=== PATIENT | female | born 1965 | race Asian ===

== ENCOUNTER 2019-04-04 12:40 | Emergency (ER) | payer OTHER ==
[~2019-04-04] VITALS: Ht 154.9 cm; Wt 56.7 kg
[2019-04-04] MEDS ORDERED: Miralax17 GM PO (14:48)
[2019-04-04] MEDS ORDERED: Norco 7.5-3251 EACH PO (14:48)
[2019-04-04] MEDS ORDERED: ONDA4ODT MM (14:50)
[2019-04-05] MEDS ORDERED: THERA1 EACH PO (18:58)
[2019-04-05] MEDS ORDERED: ERGO400 PO (18:58)
[2019-04-05] MEDS ORDERED: ASCO500 PO (18:58)
[2019-04-05] MEDS ORDERED: TOCO1000 PO (18:59)
[2019-04-05] MEDS ORDERED: FISH OIL 1,001000 MG PO (18:59)
[2019-04-16] MEDS ORDERED: ACET500 PO (11:12)
== END 2019-04-04 15:43 | disposition home or self-care (01) ==
LOC: ER 12:40
DX: K59.00 Constipation, unspecified (principal); R11.2 Nausea with vomiting, unspecified
CPT/HCPCS: 36415; 74176; 96374; 96375; 99284-25; J1170; J2405; J7030

== ENCOUNTER → 2019-04-04 | Outpatient (CLI) | payer OTHER ==
[~2019-04-04] MED LIST: ACET500 PO; ASCO500 PO; CENTRUM FLAVOR1 EAC1 PO; CYAN500; EMLA CREAM TOP; EPIDIOLEX100 MG/1 M; ERGO400 PO; FISH OIL 1,001000 MG PO; LORA.5; METO5A PO; Miralax17 GM PO; Norco 7.5-3251 EACH PO; OMEG1CAP30; ONDA4ODT MM; ONDA8 PO; PRED20 PO; PROBIOTIC1 EAC1 PO; THERA1 EACH PO; TOCO1000 PO; VITAMIN D5000 UNIT
[2019-04-04 10:35] LABS: BASOPHILS ABSOLUTE AUTO 0.05 K/mm3 (0.00-0.23); BASOPHILS PERCENT AUTO 1 % (0-2); EOSINOPHILS ABSOLUTE AUTO 0.21 K/mm3 (0.00-0.68); EOSINOPHILS PERCENT AUTO 2 % (0-6); Hematocrit 42.9 % (33.0-51.0); Hemoglobin 13.5 g/dL (11.5-16.0); IMMATURE GRAN ABSOLUTE AUTO 0.03 K/mm3 (0.00-0.10); IMMATURE GRAN PERCENT AUTO 0 % (0-1); LYMPHOCYTES ABSOLUTE AUTO 1.91 K/mm3 (0.84-5.20); LYMPHOCYTES PERCENT AUTO 19 % (21-46); MONOCYTES ABSOLUTE AUTO 0.45 K/mm3 (0.16-1.47); MONOCYTES PERCENT AUTO 4 % (4-13); Mean Corpuscular HGB 25.6 pg (26.0-34.0); Mean Corpuscular HGB Conc 31.5 g/dL (31.5-36.5); Mean Corpuscular Volume 81 fL (80-100); Mean Platelet Volume 8.4 fL (9.1-12.4); NEUTROPHILS PERCENT AUTO 74 % (41-73); Platelet Count 353 K/mm3 (150-400); RDW Coefficient Variation 14.4 % (11.7-14.2); RDW Standard Deviation 42.3 fL (35.1-46.3); Red Blood Cell Count 5.28 M/mm3 (3.80-5.20); White Blood Cell Count 10.15 K/mm3 (4.00-11.30)
[2019-04-04 10:47] LABS: Alanine Aminotransfer (ALT/SGP 21 U/L (12-78); Albumin, Blood 4.1 g/dL (3.4-5.0); Alk Phos 89 U/L (50-136); Anion Gap 8 mmol/L (6-16); Aspartate Aminotrans (AST/SGOT 20 U/L (12-37); Bilirubin, Total 0.5 mg/dL (0.1-1.0); Blood Urea Nitrogen 15 mg/dL (8-24); CO2, Blood 28 mmol/L (21-32); Calcium, Blood 9.4 mg/dL (8.5-10.1); Chloride, Blood 102 mmol/L (98-108); Creatinine, Blood 0.63 mg/dL (0.40-1.00); Glomerular Filtration Rate >60 (60-); Glucose, Blood 110 mg/dL (70-99); Potassium, Blood 3.9 mmol/L (3.5-5.5); Sodium, Blood 138 mmol/L (136-145); Total Protein, Blood 8.1 g/dL (6.4-8.2)
== END ==
LOC: LAB 09:45 → LAB SHORT 09:45
PROVIDERS: Nurse Practitioner
DX: R10.84 Generalized abdominal pain (principal)
CPT/HCPCS: 80053; 83036; 83690; 85025

== ENCOUNTER 2019-04-05 13:36 | Inpatient (IN) | payer OTHER ==
[~2019-04-05] VITALS: Ht 154.9 cm; Wt 56.7 kg
[~2019-04-05 13:36] MED LIST changes: -ACET500 PO; -ASCO500 PO; -CENTRUM FLAVOR1 EAC1 PO; -CYAN500; -EMLA CREAM TOP; -EPIDIOLEX100 MG/1 M; -ERGO400 PO; -FISH OIL 1,001000 MG PO; -LORA.5; -METO5A PO; -OMEG1CAP30; -ONDA8 PO; -PRED20 PO; -PROBIOTIC1 EAC1 PO; -THERA1 EACH PO; -TOCO1000 PO; -VITAMIN D5000 UNIT
[2019-04-05 15:23] LABS: BASOPHILS ABSOLUTE AUTO 0.03 K/mm3 (0.00-0.23); BASOPHILS PERCENT AUTO 0 % (0-2); EOSINOPHILS ABSOLUTE AUTO 0.24 K/mm3 (0.00-0.68); EOSINOPHILS PERCENT AUTO 2 % (0-6); Hematocrit 42.2 % (33.0-51.0); Hemoglobin 13.3 g/dL (11.5-16.0); IMMATURE GRAN ABSOLUTE AUTO 0.01 K/mm3 (0.00-0.10); IMMATURE GRAN PERCENT AUTO 0 % (0-1); LYMPHOCYTES ABSOLUTE AUTO 2.19 K/mm3 (0.84-5.20); LYMPHOCYTES PERCENT AUTO 20 % (21-46); MONOCYTES ABSOLUTE AUTO 0.58 K/mm3 (0.16-1.47); MONOCYTES PERCENT AUTO 5 % (4-13); Mean Corpuscular HGB 25.9 pg (26.0-34.0); Mean Corpuscular HGB Conc 31.5 g/dL (31.5-36.5); Mean Corpuscular Volume 82 fL (80-100); Mean Platelet Volume 8.3 fL (9.1-12.4); NEUTROPHILS ABSOLUTE AUTO 7.84 K/mm3 (1.96-9.15); NEUTROPHILS PERCENT AUTO 72 % (41-73); Platelet Count 349 K/mm3 (150-400); RDW Coefficient Variation 14.1 % (11.7-14.2); RDW Standard Deviation 42.5 fL (35.1-46.3); Red Blood Cell Count 5.13 M/mm3 (3.80-5.20); White Blood Cell Count 10.89 K/mm3 (4.00-11.30)
[2019-04-05 15:35] LABS: Alanine Aminotransfer (ALT/SGP 17 U/L (12-78); Albumin, Blood 3.8 g/dL (3.4-5.0); Alk Phos 82 U/L (50-136); Anion Gap 7 mmol/L (6-16); Aspartate Aminotrans (AST/SGOT 17 U/L (12-37); Bilirubin, Total 0.5 mg/dL (0.1-1.0); Blood Urea Nitrogen 10 mg/dL (8-24); Bun/Creatinine Ratio 16.8 (12.0-20.0); CO2, Blood 25 mmol/L (21-32); Calcium, Blood 8.9 mg/dL (8.5-10.1); Chloride, Blood 107 mmol/L (98-108); Glomerular Filtration Rate >60 (60-); Glucose, Blood 107 mg/dL (70-99); Potassium, Blood 4.1 mmol/L (3.5-5.5); Sodium, Blood 139 mmol/L (136-145); Total Protein, Blood 7.8 g/dL (6.4-8.2)
[2019-04-05 16:22] LABS: Source, Urine Clean Catch
[2019-04-05 16:26] LABS: Bilirubin, Urine Neg (Neg); Blood, Urine Neg (Neg); Glucose Qualitative, Urine Neg (Neg); Ketones, Urine 1+ (Neg); Leukocyte Esterase, Urine Neg (Neg); Nitrite, Urine Neg (Neg); Protein, Urine Neg (Neg); Specific Gravity, Urine 1.005 (1.003-1.022); Urobilinogen, Urine NORM (Normal)
[2019-04-05 16:38] LABS: Appearance, Urine Clear (Clear); Color, Urine Pale Yellow (P-Yellow)
[2019-04-05] MEDS ORDERED: THERA1 EACH PO (18:58)
[2019-04-05] MEDS ORDERED: ERGO400 PO (18:58)
[2019-04-05] MEDS ORDERED: ASCO500 PO (18:58)
[2019-04-05] MEDS ORDERED: FISH OIL 1,001000 MG PO (18:59)
[2019-04-05] MEDS ORDERED: TOCO1000 PO (18:59)
--- NOTE | 2019-04-05 20:22 | NUR ---
PT IN ROOM RESTING, CALL LIGHT IN REACH, NADN. WILL CONTINUE TO ASSESS + MONITOR.
--- NOTE | 2019-04-06 06:21 | NUR ---
SHIFT SUMMARY PT RESTED INFREQUENTLY THIS AM. AAOX4. NPO. DISCOMFORT CONTROLLED WITH 1MG IV DILAUDID Q2P. NAUSEA CONTROLLED WITH 12.5MG IV PHENERGAN. NO EMESIS. INDEPENDENT UP TO RESTROOM. IVF PER ORDERS. AT BEDSIDE. AWAITING POSSIBLE TRANSFER ORDERS. CALL LIGHT IN REACH + PT USES FOR ASSISTANCE.
[2019-04-06 08:45] LABS: International Normalized Ratio 1.03; Prothrombin Time Results 10.9 Sec (9.7-11.5)
--- NOTE | 2019-04-06 11:50 | NUR ---
ATTEMPTED TWICE TO CALL AND GIVE REPORT. INFORMED RN WOULD CALL BACK TO TAKE REPORT.
--- NOTE | 2019-04-06 12:10 | NUR ---
PT LEFT UNIT VIA GURNEY ON [facility] TRANSFER TO [facility]. ATTEMPTED TO CALL REPORT TO [facility] TWICE BEFORE PT LEFT. ADVISED [facility] DURING LAST ATTEMPT THAT TRANSPORT WAS HERE TO GET PT.
[2019-04-16] MEDS ORDERED: ACET500 PO (11:12)
== END 2019-04-06 12:00 | disposition short-term general hospital (02) | DRG 375 ==
LOC: ER 13:36 → SURS 16:35
PROVIDERS: Emergency Medicine; ADMIT Surgery
DX: C18.6 Malignant neoplasm of descending colon (principal); C80.0 Disseminated malignant neoplasm, unspecified; K56.609 Unspecified intestinal obstruction, unspecified as to partial versus complete obstruction; C78.7 Secondary malignant neoplasm of liver and intrahepatic bile duct; C77.2 Secondary and unspecified malignant neoplasm of intra-abdominal lymph nodes
CPT/HCPCS: 36415; 71260; 74177; 80053; 81003; 82378; 83605; 83690; 85025; 85610; 93005; 93010; 96361; 96374-59; 96375; 96376; 99285-25; J1170; J1650; J1885; J2550; J7030; J7120; Q9967

== ENCOUNTER 2019-04-20 07:36 | Day surgery (SDC) | payer OTHER ==
[~2019-04-20] VITALS: Ht 157 cm; Wt 56.8 kg
[~2019-04-20 07:36] MED LIST changes: +ACET500 PO; +ASCO500 PO; +ERGO400 PO; +FISH OIL 1,001000 MG PO; +THERA1 EACH PO; +TOCO1000 PO
--- NOTE | 2019-04-20 09:05 | NUR ---
"DAY SURGERY RN | HANDOFF TO JOSÉ MIGUEL SINGH."
--- NOTE | 2019-04-20 11:52 | NUR ---
Patient up to Ambulate independently. Gait steady. Discharge instructions reviewed with patient. Patient verbalizes understanding. Copy given to patient to take home. Patient States Post-Procedure ride home has been arranged. Discharged via wheelchair to private car for ride home.
== END 2019-04-20 22:44 | disposition home or self-care (01) ==
LOC: ORSCMMR 07:36 → ORD 09:15 → ORSCMMR 22:44
PROVIDERS: Surgery
PROC: B5131ZA Fluoroscopy of Right Jugular Veins using Low Osmolar Contrast, Guidance (ICD-10-PCS; principal; 2019-04-20 09:15)
PROC: 05HM33Z Insertion of Infusion Device into Right Internal Jugular Vein, Percutaneous Approach (ICD-10-PCS; principal; 2019-04-20 09:15)
DX: C18.9 Malignant neoplasm of colon, unspecified (principal); C78.7 Secondary malignant neoplasm of liver and intrahepatic bile duct; C80.0 Disseminated malignant neoplasm, unspecified
CPT/HCPCS: 77001; C1788; J0690; J1642; J2250; J2704; J3010; J7120

== ENCOUNTER 2019-06-04 15:59 | Day surgery (SDC) | payer OTHER ==
[2019-06-04] MEDS ORDERED: VITAMIN D5000 UNIT (17:28)
[2019-06-04] MEDS ORDERED: EPIDIOLEX100 MG/1 M (17:28)
[2019-06-04] MEDS ORDERED: OMEG1CAP30 (17:30)
[2019-06-04] MEDS ORDERED: CYAN500 (17:30)
[2019-06-04] MEDS ORDERED: LORA.5 (17:31)
[2019-06-04] MEDS ORDERED: ONDA8 PO (17:31)
[2019-06-04] MEDS ORDERED: PROBIOTIC1 EAC1 PO (17:31)
[2019-06-04] MEDS ORDERED: PRED20 PO (17:33)
[2019-06-04] MEDS ORDERED: EMLA CREAM TOP (17:33)
[2019-06-04] MEDS ORDERED: METO5A PO (17:33)
[2019-06-04] MEDS ORDERED: CENTRUM FLAVOR1 EAC1 PO (17:35)
== END 2019-06-04 16:22 | disposition home or self-care (01) ==
LOC: ATC 15:59
DX: C18.6 Malignant neoplasm of descending colon (principal); F17.200 Nicotine dependence, unspecified, uncomplicated; Z79.899 Other long term (current) drug therapy; Z91.048 Other nonmedicinal substance allergy status
CPT/HCPCS: 36415; 36591; 87040; J1642